=== PATIENT | female | born 1960 | race Caucasian/White ===

== ENCOUNTER → 2016-12-12 10:14 | Outpatient (CLI) | payer OTHER ==
[2016-01-27 10:16] VITALS: BMI 25.9
[~2016-12-12 10:14] MED LIST: CELEBREX200 MG PO; CYMBALTA60 MG PO; INDERAL10 MG PO; LEVOTHYROXINE50 MCG PO; LUNESTA3 MG PO; LYRICA150 MG PO; NEXIUM40 MG PO; PROPRANOLOL HCL20 MG PO
== END | disposition home or self-care (01) ==
LOC: D.MRI 10:14
DX: M25.511 Pain in right shoulder (principal)